=== PATIENT | female | born 1980 | race Caucasian/White ===

== ENCOUNTER 2024-03-06 06:20 | Day surgery (SDC) | payer OTHER ==
[~2024-03-06] VITALS: Ht 165.1 cm; Wt 70.5 kg
[~2024-03-06 06:20] MED LIST: AMITRIPTYLINE H10 MG PO; ASHLYNA 0.15-01 EACH PO; CALCIUM500 MG; K2 PLUS D3 TAB1 EACH PO; LEVOTHYROXINE50 MC1 PO; MIDAZOLAM HCL 5 MG/5 ML VIAL IV PRN; fentaNYL citrate 100 MCG/2 ML VIAL IV PRN
[2024-03-06 06:36] VITALS: BP 125/78
[2024-03-06] MEDS ORDERED: fentaNYL citrate 100 MCG/2 ML VIAL ONE (06:55)
[2024-03-06] MEDS ORDERED: MIDAZOLAM HCL 5 MG/5 ML VIAL ONE (06:55)
[2024-03-06] MEDS ORDERED: LACTATED RINGER'S 1,000 ML IV SCH (07:00)
[2024-03-06] MEDS ORDERED: IBLOOD GLUCOSE TEST STRIP 1 EA TEST VI PRN (07:00)
[2024-03-06] MEDS ORDERED: LIDOCAINE HCL 1% 5 ML SDV INJ ONE (07:00)
--- NOTE | 2024-03-06 07:02 | NUR ---
NO ONE WAITING . URINE OBTAINED AND SENT TO LAB. TO CALL WHEN READY TO GO HOME.
--- NOTE | 2024-03-06 08:19 | NUR ---
03/06/24 0819 Chata Harris 0814 PT ARRIVED IN PACU AWAKE WITH NO C/O'S. ABD SOFT.
[2024-03-06 08:31] VITALS: BP 123/84
--- NOTE | 2024-03-06 14:00 | OR ---
[facility] [address] [place], [place] [address] Signed DATE OF OPERATION: 03/06/2024 SURGEON: Birgit Garrett MD PREOPERATIVE DIAGNOSIS: History of polyp in 2007. POSTOPERATIVE DIAGNOSIS: Normal colon to cecum. PROCEDURE: Total colonoscopy to cecum. ANESTHESIA: Intravenous sedation; fentanyl 150 mcg, Versed 6 mg. INDICATION: This 43-year-old woman is a patient of Dr. Ingris Patel and underwent colonoscopy in 2007 at which time she was noted to have a polyp. She has no family history of colon cancer and no current symptoms of bleeding, diarrhea, or constipation. She is admitted at this time to undergo colonoscopy. She understands the risk of bleeding, infection, and perforation. FINDINGS: The prep was excellent. Complete colonoscopy was undertaken to the cecum. Full intubation of the cecum was accomplished as well. The appendiceal orifice and the ileocecal valve were normal. The remaining colon was entirely normal, showing no sign of polyps, diverticular formation, colitis, or cancer. DESCRIPTION OF PROCEDURE: The patient was brought to the endoscopy suite and placed in the lateral decubitus position, given intravenous sedation to the point of slurred speech and nystagmus. Digital rectal examination was normal. An Olympus video colonoscope was passed in the rectum and manipulated throughout the colon ultimately intubating the cecum itself. The ileocecal valve and appendiceal orifice were normal. The scope was withdrawn and examination throughout showed no sign of polyps or other abnormality. Retroflexed view of the rectum was normal. The scope was removed and the patient was taken to the recovery room in good condition. Electronically Signed By: BIRGIT GARRETT MD 03/06/24 [facility] PATIENT NAME: JEF MUNIZ OPERATIVE REPORT DATE OF : 76 REPORT #: [id number] PHYSICIAN: BIRGIT GARRETT MD PCP: INGRIS PATEL MD REPORT IS CONFIDENTIAL AND NOT TO BE RELEASED WITHOUT AUTHORIZATION [facility] [address] [place], [place] [address] Signed CONCLUDING DIAGNOSIS: Normal colon to cecum. PLAN: Recommend repeat colonoscopy in 10 years, sooner if clinically indicated including symptoms of bleeding, diarrhea, or constipation. She will return to the ongoing care of Dr. Patel. MD STEVE Martinez/RANGEL /[id number] cc: Ingris Patel MD Copies: INGRIS PATEL DMD ~ Electronically Signed By: BIRGIT GARRETT MD 03/06/24 1400 PATIENT NAME: JEF MUNIZ OPERATIVE REPORT DATE OF : 76 REPORT #: [id number] PHYSICIAN: BIRGIT GARRETT MD PCP: INGRIS PATEL MD REPORT IS CONFIDENTIAL AND NOT TO BE RELEASED WITHOUT AUTHORIZATION
== END 2024-03-06 08:45 | disposition home or self-care (01) ==
LOC: DS 06:20
PROVIDERS: ATTEND Surgery
PROC: 0DJD8ZZ Inspection of Lower Intestinal Tract, Via Natural or Artificial Opening Endoscopic (ICD-10-PCS; principal; 2024-03-06 07:30)
DX: Z12.11 Encounter for screening for malignant neoplasm of colon (principal); E03.9 Hypothyroidism, unspecified; N81.4 Uterovaginal prolapse, unspecified; Z86.0100 Personal history of colon polyps, unspecified; Z79.890 Hormone replacement therapy; Z79.899 Other long term (current) drug therapy
CPT/HCPCS: 84703; 99153; G0500; J2250; J3010; J7121

== ENCOUNTER 2024-08-08 05:40 | Day surgery (SDC) | payer OTHER ==
[2024-07-31 08:57] VITALS: BP 133/88
[~2024-08-08] VITALS: Ht 165.1 cm; Wt 72.7 kg
[~2024-08-08 05:40] MED LIST changes: +LACTATED RINGER'S 1,000 ML IV SCH; -MIDAZOLAM HCL 5 MG/5 ML VIAL IV PRN; +SUDAFED 12 HOU120 MG PO; -fentaNYL citrate 100 MCG/2 ML VIAL IV PRN
[2024-08-08 05:56] VITALS: BP 122/78
[2024-08-08] MEDS ORDERED: AMOX TR-K CLV1 EAC1 PO (05:59)
[2024-08-08] MEDS ORDERED: LIDOCAINE 1% W/ EPI 1:200,000 30 ML SDV ONE (06:53)
[2024-08-08] MEDS ORDERED: SODIUM CHLORIDE 0.9% 40 ML IV ONE ×2 (06:53→07:22)
[2024-08-08] MEDS ORDERED: LIDOCAINE HCL 1% 5 ML SDV INJ ONE (07:00)
[2024-08-08] MEDS ORDERED: IBLOOD GLUCOSE TEST STRIP 1 EA TEST VI PRN ×2 (07:00→08:45)
[2024-08-08] MEDS ORDERED: CEFAZOLIN SODIUM 2 GM/20 ML SYR IV SCH (07:00)
[2024-08-08] MEDS ORDERED: fentaNYL citrate 100 MCG/2 ML VIAL ONE (07:21)
[2024-08-08] MEDS ORDERED: KETAMINE in NS 50 MG/5 ML SYR ONE (07:21)
[2024-08-08] MEDS ORDERED: MAGNESIUM SULFATE 1 GM/2 ML VIAL ONE (07:22)
[2024-08-08] MEDS ORDERED: DEXAMETHASONE SOD PHOS 4 MG/ML VIAL ONE (07:22)
[2024-08-08] MEDS ORDERED: KETOROLAC TROMETHAMINE 30 MG/ML VIAL ONE (07:22)
[2024-08-08] MEDS ORDERED: ACETAMINOPHEN 1,000 MG/100 ML VIAL ONE (07:22)
[2024-08-08] MEDS ORDERED: LIDOCAINE HCL 2% 5 ML SDV ONE (07:22)
[2024-08-08] MEDS ORDERED: propofoL 200 MG/20 ML VIAL ONE (07:22)
[2024-08-08] MEDS ORDERED: ondansetron HCL 4 MG/2 ML VIAL ONE (07:22)
[2024-08-08] MEDS ORDERED: dexmedeTOMIDine HCl 200 MCG/2 ML VIAL ONE (07:32)
--- NOTE | 2024-08-08 07:57 | NUR ---
VISITED DURING SPIRITUAL CARE ROUNDS. PT SUPPORTED BY IN ROOM, TEARFUL, ADMITS ANXIETY. 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 PT EXPRESSED GRATITUDE, PROCESSED EMOTION.
[2024-08-08] MEDS ORDERED: ondansetron HCL 4 MG/2 ML VIAL IV PRN (08:45)
[2024-08-08] MEDS ORDERED: HYDROmorphone HCL 1 MG/ML SYR IV PRN (08:45)
[2024-08-08] MEDS ORDERED: estradioL 0.01% 42.5 GM TUBE ONE (08:45)
[2024-08-08] MEDS ORDERED: fentaNYL citrate 50 MCG/ML SDV IV PRN (08:45)
[2024-08-08] MEDS ORDERED: droPERidol 5 MG/2 ML VIAL IV PRN (08:45)
[2024-08-08] MEDS ORDERED: NALOXONE HCL 0.4 MG SYR IV PRN ×2 (08:45→09:45)
--- NOTE | 2024-08-08 09:39 | NUR ---
08/08/24 0939 Moira Enriquez 0920- PT ARRIVES TO PACU, SEMI ROBERTS POSITION, REACTIVE TO STIMULUS. BREATHING EVEN AND NON LABORED. LR INFUSING TO LFA IV. VAGINAL PACKING IN PLACE, NO BLEEDING NOTED AT THIS TIME. ABD SOFT, NON DISTENDED. ALL MONITORS IN PLACE. 0925- PT VERY DROWSY, KEEPS EYES CLOSED, BUT DENIES PAIN AND NAUSEA. C/O FEELING THIRSTY, REORIENTED TO TIME AND PLACE. WILL GET WATER ONCE MORE AWAKE. 0929- PT C/O 06/09 ABD CRAMPING, TOLERABLE. NO NAUSEA. 0931- PT TAKING SMALL SIPS OF WATER, TOLERATING WELL.
[2024-08-08] MEDS ORDERED: MAGNESIUM HYDROXIDE/AL HYDROX 30 ML CUP PO PRN (09:45)
[2024-08-08] MEDS ORDERED: FAMOTIDINE 20 MG TAB PO PRN (09:45)
[2024-08-08] MEDS ORDERED: HYDROCODONE/ACETA 5/325 TAB PO PRN (09:45)
[2024-08-08 09:53] VITALS: BP 138/90
--- NOTE | 2024-08-08 10:06 | NUR ---
0950 PT ARRIVED TO DAY SURGERY FROM PACU VIA KRISR. PT REPORTS 3/10 CRAMPING PAIN, BUT TOLERABLE. PT REPORTS NO NAUSEA AT THIS TIME. PT HAS ALREADY HAD PACKING REMOVED IN PACU. PT HAS REBECCA PAD IN PLACE, WITH SMALL AMOUNT OF RED DRAIANGE. VITALS TAKEN. IV ASSESSED. PT SIPPING ON WATER. CRACKERS AT BEDSIDE. 0955 SECOND PILLOW PROVIDED. WARM BLANKETS APPLIED DUE TO PT FEELING COLD. WARM COMPRESS MADE FOR CRAMPING PAIN, APPLIED TO LOWER ABDOMEN. PT HAS CALL LIGHT WITHIN REACH, PERSONAL ITEMS WITHIN REACH. BED IS LOW AND LOCKED.
[2024-08-08 10:50] VITALS: BP 122/76
--- NOTE | 2024-08-08 10:57 | NUR ---
1045 HOURLY ROUNDING DONE WITH PT. VITALS TAKEN. IV ASSESSED. PT REPORTS TOLERABLE 1/10 CRAMPING. HEAT PAD STILL APPLIED. PT SITTING UPRIGHT, PT HAS TOELRATED PO FLUIDS AND CRACKERS. PT REPORTS NO URGE TO URINATE YET. PT HAS CALL LIGHT WITHIN REACH. PT HAS PERSONAL ITEMS WITHIN REACH. PT REPORTS NO NAUSEA AT THIS TIME.
--- NOTE | 2024-08-08 11:10 | NUR ---
Call light answered. Patient requests to get up and use the restroom. Patient walks to bathroom with a steady gait and denies any dizziness or weakness. Pad that was in place has small amount of red drainage with a couple pea-sized clots on the pad. Patient was able to void 400mL of red colored urine with more pea-sized clots in the hat. Patient allowed to get dressed at this time
[2024-08-08] MEDS ORDERED: SEVOFLURANE 250 ML BTL INH ONE (11:12)
--- NOTE | 2024-08-08 12:08 | NUR ---
1110 PT AMBULATED TO BATHROOM AND VOIDED 400 MLS OF URINE WITH SEVERAL SMALL PEA SIZED CLOTS NOTED. PT ABLE TO AMBULATE BACK TO ROOM. PT GETTING DRESSED ON OWN. 1115 IV REMOVED FROM PT, WRAPPED SITE IN COBAN. 1120 DISCHARGE INFORMATION GONE OVER WITH PT. NO, QUESTIONS AT THIS TIME. 1135 PT DISCHARGED FROM DAY SURGERY BY WHEELCHAIR TO THE FRONT OF THE HOSPITAL TO PT'S HUSBANDS CAR.
== END 2024-08-08 11:35 | disposition home or self-care (01) ==
LOC: DS 05:40 → OPS 05:40 → DS 07:30 → OPS 11:35
PROVIDERS: ATTEND Obstetrics & Gynecology
PROC: 0JQC0ZZ Repair Pelvic Region Subcutaneous Tissue and Fascia, Open Approach (ICD-10-PCS; principal; 2024-08-08 07:30)
PROC: 0JQC0ZZ Repair Pelvic Region Subcutaneous Tissue and Fascia, Open Approach (ICD-10-PCS; 2024-08-08 07:30)
PROC: 0TSD0ZZ Reposition Urethra, Open Approach (ICD-10-PCS; 2024-08-08 07:30)
DX: N39.3 Stress incontinence (female) (male) (principal); N81.11 Cystocele, midline; N81.6 Rectocele; E03.9 Hypothyroidism, unspecified; Z79.890 Hormone replacement therapy; Z79.899 Other long term (current) drug therapy
CPT/HCPCS: 00860; C1771; J0131; J0690; J1100; J1885; J2003; J2405; J2704; J3010; J3475; J3490; J7121